=== PATIENT | male | born 1990 | race Two or more races ===

== ENCOUNTER 2020-08-28 08:54 | Outpatient (REF) | payer OTHER, SELFPAY | END 2020-08-28 08:55 | disposition home or self-care (01) | LOC: HO.LAB 08:54 | PROVIDERS: Visit Provider Internal Medicine | DX: Z20.828 Contact with and (suspected) exposure to other viral communicable diseases (principal) | CPT/HCPCS: C9803; U0003 ==

== ENCOUNTER 2022-08-24 11:21 | Emergency (ER) | payer OTHER, SELFPAY ==
--- NOTE | ~2022-08-24 | XR_ITS ---
EXAMINATION: XR CHEST CLINICAL INFORMATION: Cough and wheezing. COMPARISON: 01/30/2018 chest radiographs. TECHNIQUE: 2 views of the chest were obtained. FINDINGS: No significant abnormality is noted involving the heart, lungs, mediastinum, bony thorax or soft tissues. XR/XR chest 2V IMPRESSION: No acute cardiopulmonary process.
[2022-08-24 11:23] VITALS: BP 165/82; PULSE 90; RESP 18; TEMP 37.1; O2SAT 97; BMI 33.5
--- NOTE | 2022-08-24 11:33 | ED_ITS ---
HPI - General Adult General Chief complaint: General Medical Stated complaint: fever body aches Time Seen by Provider: 08/24/22 11:33 Source: patient Mode of arrival: ambulatory Limitations: no limitations History of Present Illness HPI narrative: 31 yo male presents to the ER for evaluation of flu like symptoms for the last 4 days. He states he has diffuse body aches and headache. He has a cough that is productive of white phlegm. He states the cough is worse in the morning and dissipates throughout the day. He feels weak and fatigued. He denies any sick contacts at home. He is unemployed. He is not vaccinated for influenza but is up-to-date on his COVID vaccinations. He reports intermittent fevers that come and go. He has been eating and drinking normally. No nausea, vomiting, diarrhea. No chest pain or shortness of breath. MD complaint: Flu-like symptoms Onset (ago): day(s) (4) Location: head, back, left, right and lower extremity Radiation: non-radiation Severity: moderate Quality: aching Pain Consistency: constant Relieving factors: none Exacerbating factors: medication Associated symptoms: cough, fever/chills, headaches, loss of appetite, malaise and weakness Treatments prior to arrival: none Related Data Previous Rx's Medication Instructions Recorded albuterol sulfate 90 mcg/actuation 1 inh inhalation QID PRN shortness 08/24/22 aerosol inhaler of breath or wheezing #6.7 grams benzonatate 100 mg capsule 100 mg PO TID PRN cough #30 caps 08/24/22 prednisone 20 mg tablet 40 mg PO DAILY #10 tabs 08/24/22 Allergies Allergy/AdvReac Type Severity Reaction Status Date / Time Penicillins [PCN] Allergy Unknown UNKNOWN Unverified 06/01/20 19:29 Review of Systems Review of Systems: Constitutional: + Fever, + Chills ENT/Mouth: No sore throat, No Rhinorrhea, No Swallowing Difficulty Eyes: No Eye Pain, No Swelling, No Redness Cardiovascular: No Chest Pain, No SOB Respiratory: + Cough, + Sputum, No Wheezing, No dyspnea Gastrointestinal: No Nausea, No Vomiting, No Diarrhea, No abdominal Pain Musculoskeletal: + joint pain, +Myalgias Skin: No Skin Lesions, No rash Neuro: + Weakness, No Numbness, No Dizziness, + Headache Heme/Lymph: No Lymphadenopathy PMFSH Social History Social History Advance Directives: No Advance Directives Information Provided: No Physical Exam ED Vital Signs: Vital Signs - 24 hr 08/24/22 11:23 Temperature 98.8 F Pulse Rate 90 Respiratory Rate 18 Blood Pressure 165/82 H Pulse Oximetry 97 Oxygen Delivery Method Room Air BMI result Body Mass Index 33.5 Appearance: Alert. Oriented X3. No acute distress. Eyes: Pupils equal, round and reactive to light. ENT: Pharynx normal. No tonsillar swelling or exudate. Uvula midline. Moist mucous membranes. Tympanic membranes normal bilaterally. Neck: Normal inspection. Neck supple. CVS: Normal heart rate and rhythm. Pulses normal. Respiratory: No respiratory distress. Breath sounds with faint and scattered end expiratory wheezes, no rhonchi. Skin: Skin warm and dry. Normal skin color. Normal skin turgor. No rashes. Extremities: No lower extremity edema. No calf tenderness Neuro: Oriented X 3. Grossly normal, nonfocal Course Course Course Narrative: 31-year-old otherwise healthy male presents to the ER for evaluation of flu-like symptoms for the last 4 days. Slightly hypertensive on arrival but AFib dry I will with normal oxygen saturations. He has faint end-expiratory wheezes scattered, he is a smoker. No respiratory distress. Will check chest x-ray and viral PCR. Reevaluation(s) Reevaluation #1: Chest x-ray is clear, no evidence of pneumonia. He tested positive for influenza A. Symptoms started 4 days ago. We discussed diagnosis and management. Stable for discharge home with supportive care. Critical Care Time Critical Care Time Critical Care Time: No Discharge Plan Discharge Clinical Impression: Influenza A Patient Disposition: Home, Self-Care Instructions: Influenza (ED) Additional Instructions: Your x-ray was normal, no evidence of pneumonia. You tested positive for influenza A. Treatment is supportive care. Take [id number] cold and flu medications as needed for your symptoms. Take the prescribed steroids for the slight wheezing in your lungs. Use the prescribed inhaler as needed for wheezing. Do your best to quit smoking. Rest and stay hydrated Follow-up with your doctor. If you develop new or worsening symptoms call 911 or come back to the ER for further evaluation. Rivera radiograf?a fue normal, sin evidencia de neumon?a. Usted sidney positivo por influenza A. El tratamiento es atenci?n de apoyo. [place] medicamentos de venta beata para el resfriado y la gripe seg?n sea necesario para nathan s?ntomas. [place] los esteroides prescritos para la leve sibilancia en los pulmones. Use el inhalador recetado seg?n sea necesario para las sibilancias. Emigdio todo lo posible para dejar de fumar. Descansa y mantente hidratado Seguimiento con rivera m?dico. Si desarrolla s?ntomas nuevos o que empeoran, llame al 911 o regrese a la huy de emergencias para shilo evaluaci?n adicional. Prescriptions: New albuterol sulfate 90 mcg/actuation HFA aerosol inhaler 1 inh inhalation QID PRN (Reason: shortness of breath or wheezing) Qty: 6.7 0RF prednisone 20 mg tablet 40 mg PO DAILY Qty: 10 0RF benzonatate 100 mg capsule 100 mg PO TID PRN (Reason: cough) Qty: 30 0RF Print Language: Romanian
[2022-08-24 12:27] LABS: Influenza A PCR POSITIVE (Negative); Influenza B PCR NEGATIVE (Negative); Resp Syncy Virus RNA Qual PCR NEGATIVE (Negative); SARS COV2 PCR INHOUSE NEGATIVE (Negative)
== END 2022-08-24 12:44 | disposition home or self-care (01) ==
PROVIDERS: Emergency Provider Emergency Medicine
DX: J11.1 Influenza due to unidentified influenza virus with other respiratory manifestations (principal); R50.9 Fever, unspecified; Z20.822 Contact with and (suspected) exposure to COVID-19
CPT/HCPCS: 0241U; 71046; 99282; 99283

== ENCOUNTER 2022-10-01 19:38 | Emergency (ER) | payer OTHER, SELFPAY ==
[2022-10-01 20:35] VITALS: BP 132/76; PULSE 84; RESP 20; TEMP 39.3; O2SAT 98; BMI 32.8
[2022-10-01 22:23] LABS: Influenza A PCR NEGATIVE (Negative); Influenza B PCR NEGATIVE (Negative); Resp Syncy Virus RNA Qual PCR NEGATIVE (Negative); SARS COV2 PCR INHOUSE NEGATIVE (Negative)
[2022-10-02 04:00] VITALS: BP 125/68; PULSE 68; RESP 18; TEMP 39.6; O2SAT 96
--- NOTE | 2022-10-02 04:37 | ED.GENADULT ---
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 patient states that he was feeling very weak, fatigued, lightheaded and dizzy. He states that his headache was a constant, throbbing sensation and was 10 of 10. Patient had an occasional cough, the was also complaining of chest pain which was worse with coughing. Related Data Previous Rx's Medication Instructions Recorded albuterol sulfate 90 mcg/actuation 1 inh inhalation QID PRN shortness 08/24/22 aerosol inhaler of breath or wheezing #6.7 grams benzonatate 100 mg capsule 100 mg PO TID PRN cough #30 caps 08/24/22 prednisone 20 mg tablet 40 mg PO DAILY #10 tabs 08/24/22 ondansetron 4 mg disintegrating 4 mg PO Q6-8H PRN nausea and 10/02/22 tablet vomiting #14 tabs Allergies Allergy/AdvReac Type Severity Reaction Status Date / Time Penicillins [PCN] Allergy Unknown UNKNOWN Verified 10/01/22 20:35 Review of Systems Review of Systems: Yes all other systems are reviewed and are negative [facility] Past Medical History [facility] Narrative: Social history: The patient does smoke cigarettes, occasionally drinks alcohol he denies drug use. Social History Social History Alcohol intake: current Alcohol intake frequency: holidays/special occasions only Smoked in Last 30 Days: Yes Advance Directives: No Advance Directives Information Provided: No Physical Exam ED Vital Signs: Vital Signs - 24 hr 10/01/22 20:35 10/02/22 04:00 10/02/22 06:29 Temperature 102.7 F H 103.2 F H 99.1 F Pulse Rate 84 68 75 Respiratory Rate 20 18 16 Blood Pressure 132/76 125/68 109/59 L Pulse Oximetry 98 96 94 Oxygen Delivery Method Room Air Room Air Room Air 10/02/22 07:02 Temperature 99 F Pulse Rate 71 Respiratory Rate 18 Blood Pressure 107/63 Pulse Oximetry 96 Oxygen Delivery Method Room Air BMI result Body Mass Index 32.8 Const General: cooperative and no acute distress Orientation/consciousness: oriented to person and oriented to place Limitations: no limitations HENMT Head: Yes normal to inspection, Yes normocephalic and Yes atraumatic Ears: external ears normal General nose exam: Normal external nose present Face and sinus: Yes normal facial exam Mouth: Normal oral and palatal mucosa present Throat: Yes posterior oropharynx normal Eyes General: appearance normal, both eyes and all related structures Pupils: Equal, round and reactive pupils present Neck Neck: Yes normal visual inspection, Yes no lymphadenopathy, Yes trachea midline and Yes supple Chest Chest palpation & inspection: normal inspection of the chest and normal palpation of entire chest wall Resp Effort & Inspection: normal respiratory effort and able to speak in complete sentences Auscultation: clear to auscultation bilaterally Cardio Rate: regular rate Rhythm: regular rhythm Heart sounds: S1 normal heart sound present, S2 normal heart sound present and no murmurs GI Inspection: Yes normal to inspection Palpation (GI): Soft to palpation, nontender and no guarding Auscultation: normal bowel sounds General: Yes no CVA tenderness Back/Spine/Pelvis Back: no CVA tenderness Skin General skin exam: no rashes or lesions noted Neuro General: oriented to person and oriented to place Cranial nerves: Yes CN's II-XII intact bilaterally and Yes Equal, round and reactive pupils present Cognition (Neuro): normal cognition Motor exam (neuro): 5/5 motor strength present throughout Extrem General: Yes normal to inspection Psych Appearance: grossly normal Speech and movement: Normal speech and movement present Affect: normal affect Attitude: cooperative Thought process: Normal thought process present Thought content: Normal thought content present Medications Administered Discontinued Medications Generic Name Dose Route Start Last Admin Trade Name Freq PRN Reason Stop Dose Admin Sodium Chloride 1,000 mls @ 999 mls/hr 10/02/22 04:08 10/02/22 07:18 Ns IV 10/02/22 05:08 Infused .Q1H1M STA Infusion Ketorolac Tromethamine 15 mg 10/02/22 04:08 10/02/22 04:56 Ketorolac Tromethamine 15 Mg/Ml Vial IVPUSH 10/02/22 04:09 15 mg ONCE STA Administration Ondansetron HCl 4 mg 10/02/22 04:08 10/02/22 04:56 Ondansetron Hcl 4 Mg/2 Ml Vial IVPUSH 10/02/22 04:09 4 mg ONCE ONE Administration Medical Decision Making Medical Decision Making [facility] Narrative: 32-year-old male who presents emergency department for evaluation of viral-like illness x5 days with symptoms including fever, headaches, nausea, vomiting, diarrhea, myalgias and arthralgias. Vital signs did reveal a fever of 102.7 otherwise were unremarkable. Patient's examination was also unremarkable. Did order laboratory evaluation to include CBC, BMP, lipase, COVID-19, RSV and influenza. Chest x-ray was also ordered. Patient was treated with normal saline IV x1 L, Toradol 15 mg IV for his headache and pain and Zofran 4 mg IV for nausea and vomiting 0822: My independent interpretation patient's laboratory evaluation is as follows: Low sodium 133, low CO2 20, elevated AST 43. COVID-19, influenza and RSV were negative. Chest x-ray on my independent interpretation revealed no acute disease. patient is feeling better after the above treatment. patient was prescribe Zosyn 4 mg ODT as needed for nausea and vomiting, is advised also take Tylenol and ibuprofen for fever and pain. He was given printed and verbal instructions and discharged home. Differential Diagnosis Differential diagnosis includes was not limited to pneumonia, bronchitis, influenza, RSV, COVID-19, viral syndrome, dehydration, electrolyte abnormalities Lab Data [facility] Lab Attestation statement: I reviewed the patient's lab results. please see the MDM from my discussion of the patient's laboratory 10/02/22 04:50 10/02/22 04:50 Labs: Lab Results 10/01/22 10/02/22 10/02/22 Range/Units 21:40 04:49 04:50 WBC 6.3 (4.8-10.8) X10*3/uL RBC 5.07 (4.60-5.80) X10*6/uL Hgb 14.3 (14.0-18.0) g/dl Hct 40.4 L (42.0-52.0) % MCV 79.7 L (80.0-98.0) fL MCH 28.2 (27.0-33.0) pg MCHC 35.4 (31.0-36.0) g/dl RDW 13.2 (11.0-16.0) % Plt Count 200 (160-400) X10*3/uL MPV 9.7 (9.4-12.4) fL Immature Gran % (Auto) 0.2 (0.0-0.4) % Neut % (Auto) 68.1 (45-73) % Lymph % (Auto) 23.3 (20-40) % Clay % (Auto) 8.1 (2-11) % Eos % (Auto) 0.0 (0-4) % Baso % (Auto) 0.3 (0-2) % Lymph # (Auto) 1.5 (1.2-4.9) X10*3/uL Clay # (Auto) 0.5 (0.1-1.2) X10*3/uL Eos # (Auto) 0.0 (0.0-0.4) X10*3/uL Baso # (Auto) 0.0 (0.0-0.2) X10*3/uL Abs Immat Gran (auto) 0.01 (0.00-0.03) X10*3/uL Absolute Neuts (auto) 4.3 (2.0-8.3) x10*3/uL Absolute Nucleated RBC 0.000 (0.0-0.012) X10*3/uL Nucleated RBC % (auto) 0.0 (0.0-0.2) /100WBC Sodium (135-145) mmol/L Potassium (3.3-5.1) mmol/L Chloride (96-108) mmol/L Carbon Dioxide (22-29) mmol/L Anion Gap (12-20) BUN (9-16) mg/dL Creatinine (0.5-1.4) mg/dL Estim Creat Clear Calc Estimated GFR Random Glucose (60-115) mg/dL Lactic Acid 0.8 (0.5-2.0) mmol/L Calcium (8.4-10.2) mg/dL Total Bilirubin (0.0-1.0) mg/dL AST (5-37) U/L ALT (0-40) U/L Alkaline Phosphatase (39-117) U/L Total Protein (6.5-8.0) g/dL Albumin (3.5-5.0) g/dL Lipase (8-78) U/L Influenza Type A (PCR) NEGATIVE (Negative) Influenza Type B (PCR) NEGATIVE (Negative) RSV RNA Qual (PCR) NEGATIVE (Negative) SARS-CoV-2 RNA (RT-PCR) NEGATIVE (Negative) 10/02/22 Range/Units 04:50 WBC (4.8-10.8) X10*3/uL RBC (4.60-5.80) X10*6/uL Hgb (14.0-18.0) g/dl Hct (42.0-52.0) % MCV (80.0-98.0) fL MCH (27.0-33.0) pg MCHC (31.0-36.0) g/dl RDW (11.0-16.0) % Plt Count (160-400) X10*3/uL MPV (9.4-12.4) fL Immature Gran % (Auto) (0.0-0.4) % Neut % (Auto) (45-73) % Lymph % (Auto) (20-40) % Clay % (Auto) (2-11) % Eos % (Auto) (0-4) % Baso % (Auto) (0-2) % Lymph # (Auto) (1.2-4.9) X10*3/uL Clay # (Auto) (0.1-1.2) X10*3/uL Eos # (Auto) (0.0-0.4) X10*3/uL Baso # (Auto) (0.0-0.2) X10*3/uL Abs Immat Gran (auto) (0.00-0.03) X10*3/uL Absolute Neuts (auto) (2.0-8.3) x10*3/uL Absolute Nucleated RBC (0.0-0.012) X10*3/uL Nucleated RBC % (auto) (0.0-0.2) /100WBC Sodium 133 L (135-145) mmol/L Potassium 3.8 (3.3-5.1) mmol/L Chloride 101 (96-108) mmol/L Carbon Dioxide 20 L (22-29) mmol/L Anion Gap 16 (12-20) BUN 15 (9-16) mg/dL Creatinine 0.93 (0.5-1.4) mg/dL Estim Creat Clear Calc 141.6 Estimated GFR > 60 Random Glucose 98 (60-115) mg/dL Lactic Acid (0.5-2.0) mmol/L Calcium 8.8 (8.4-10.2) mg/dL Total Bilirubin 0.7 (0.0-1.0) mg/dL AST 31 (5-37) U/L ALT 43 H (0-40) U/L Alkaline Phosphatase 51 (39-117) U/L Total Protein 7.1 (6.5-8.0) g/dL Albumin 4.1 (3.5-5.0) g/dL Lipase 19 (8-78) U/L Influenza Type A (PCR) (Negative) Influenza Type B (PCR) (Negative) RSV RNA Qual (PCR) (Negative) SARS-CoV-2 RNA (RT-PCR) (Negative) Independent Interpretation I performed an independent interpretation of an: Plain X-Ray ( chest x-ray) Interpretation: my independent interpretation patient's chest x-ray is no acute disease Radiology Impression Discussion of test interpretation with radiology: I have reviewed the radiologist's reading. Radiologist Impression: XR chest 2V IMPRESSION: No acute cardiopulmonary process. Dictated By: Nikhil Sharp MD Signed By:<Electronically signed by Nikhil Sharp MD in OV> Discharge Plan Discharge Clinical Impression: Viral syndrome, Acute dehydration Vomiting Qualifiers: Nausea presence: with nausea Diarrhea Qualifiers: Diarrhea type: unspecified type Qualified Code(s): R19.7 - Diarrhea, unspecified Patient Disposition: Home, Self-Care Instructions: Acute Nausea and Vomiting (ED), Viral Syndrome (ED) Additional Instructions: Your blood work was unremarkable. Your chest x-ray was normal with no evidence of pneumonia. Your COVID-19, influenza and RSV tests were negative. Take Zofran ODT 4 mg pills, 1 pill dissolved in your mouth every 8 hours as needed for nausea and vomiting. Take ibuprofen 200 mg pills, 3 pills every 6 hours as needed for pain. Take Tylenol (acetaminophen) 500 mg pills, 2 pills every 4 to 6 hours as needed for pain. Increase your fluid intake to prevent dehydration For the next 24 hours, stay on a ANGELINA diet (bananas, rice, applesauce, tea and toast). Follow-up with your doctor in 2 days. Please return to the emergency department if your symptoms get worse or if you develop any symptoms that are concerning to you. Prescriptions: New ondansetron 4 mg tablet,disintegrating 4 mg PO Q6-8H PRN (Reason: nausea and vomiting) Qty: 14 0RF No Action albuterol sulfate 90 mcg/actuation HFA aerosol inhaler 1 inh inhalation QID PRN (Reason: shortness of breath or wheezing) Qty: 6.7 0RF prednisone 20 mg tablet 40 mg PO DAILY Qty: 10 0RF benzonatate 100 mg capsule 100 mg PO TID PRN (Reason: cough) Qty: 30 0RF
[2022-10-02] MEDS: 0.9 % Sodium Chloride 1,000 ML 999 ML IV (04:55)
[2022-10-02] MEDS: ondansetron HCL 4 MG/2 ML VIAL IVPUSH (04:56)
[2022-10-02] MEDS: Ketorolac Tromethamine 15 MG/ML VIAL IVPUSH (04:56)
[2022-10-02 04:57] LABS: Basophils Percent Auto 0.3 % (0-2); Hematocrit 40.4 % (42.0-52.0); Hemoglobin 14.3 g/dl (14.0-18.0); Imm Gran Abs Auto 0.01 X10*3/uL (0.00-0.03); Imm Gran Pct Auto 0.2 % (0.0-0.4); Lymphocytes Absolute Auto 1.5 X10*3/uL (1.2-4.9); Lymphocytes Percent Auto 23.3 % (20-40); MANUAL DIFF FLAG NO; Mean Corpuscular HGB Conc 35.4 g/dl (31.0-36.0); Mean Corpuscular Hemoglobin 28.2 pg (27.0-33.0); Mean Corpuscular Volume 79.7 fL (80.0-98.0); Mean Platelet Volume 9.7 fL (9.4-12.4); Monocytes Absolute Auto 0.5 X10*3/uL (0.1-1.2); Monocytes Percent Auto 8.1 % (2-11); Neutrophils Absolute Auto 4.3 x10*3/uL (2.0-8.3); Neutrophils Percent Auto 68.1 % (45-73); Platelet Count 200 X10*3/uL (160-400); Red Blood Count 5.07 X10*6/uL (4.60-5.80); Red Cell Distribution Width 13.2 % (11.0-16.0); White Blood Count 6.3 X10*3/uL (4.8-10.8)
[2022-10-02 05:06] LABS: Lactic Acid 0.8 mmol/L (0.5-2.0)
[2022-10-02 05:15] LABS: Alanine Aminotransferase 43 U/L (0-40); Albumin Level 4.1 g/dL (3.5-5.0); Alkaline Phosphatase 51 U/L (39-117); Anion Gap 16 (12-20); Aspartate Amino Transferase 31 U/L (5-37); Bilirubin Total 0.7 mg/dL (0.0-1.0); Blood Urea Nitrogen 15 mg/dL (9-16); Calcium 8.8 mg/dL (8.4-10.2); Carbon Dioxide 20 mmol/L (22-29); Chloride 101 mmol/L (96-108); Creatinine Clr Calc Pharmacy 141.6; Estimated Glomerular Filt Rate > 60; Glucose Random 98 mg/dL (60-115); Lipase 19 U/L (8-78); Potassium 3.8 mmol/L (3.3-5.1); Sodium 133 mmol/L (135-145); Total Protein 7.1 g/dL (6.5-8.0)
[2022-10-02 06:29] VITALS: BP 109/59; PULSE 75; RESP 16; TEMP 37.3; O2SAT 94
[2022-10-02 07:02] VITALS: BP 107/63; PULSE 71; RESP 18; TEMP 37.2; O2SAT 96
--- NOTE | 2022-10-02 07:18 | PC.NURSE ---
pt a/o x 4 no sob/hayley noted speaks in full sentences. lungs - rain upper (cta), rain lower (diminished). heart sounds - regular. abd soft and non-tender, bs + x 4 quads. no edema noted. 0/10 pain. no diarrhea since arrival to er.
== END 2022-10-02 08:40 | disposition home or self-care (01) ==
PROVIDERS: Emergency Provider Emergency Medicine Emergency Medical Services
DX: B34.9 Viral infection, unspecified (principal); E86.0 Dehydration; R50.9 Fever, unspecified; R19.7 Diarrhea, unspecified; R11.2 Nausea with vomiting, unspecified; Z20.822 Contact with and (suspected) exposure to COVID-19; Z20.828 Contact with and (suspected) exposure to other viral communicable diseases; Z79.899 Other long term (current) drug therapy
CPT/HCPCS: 0241U; 36415; 80053; 83605; 83690; 85025; 87040; 96361; 96374; 96375; 99284; J1885; J2405

== ENCOUNTER 2022-10-03 19:38 | Emergency (ER) | payer OTHER, SELFPAY ==
[2022-10-03 19:51] VITALS: BP 116/71; PULSE 87; RESP 16; TEMP 38.6; O2SAT 97; BMI 18.9
[2022-10-03] MEDS: Acetaminophen 325 MG TABLET 650 MG PO (20:03)
--- NOTE | 2022-10-03 20:11 | ED_ITS ---
HPI - URI/Sore Throat General Chief Complaint: Fever Stated Complaint: Fever/ Bodyaches Time Seen by Provider: 10/03/22 20:07 Source: patient Mode of arrival: ambulatory Limitations: language barrier (Central [place]-speaking) History of Present Illness HPI Narrative: 32-year-old male who is [place]-speaking presenting to the ER with complaints of 1 week of a fever, sore throat and a nonproductive cough. Reports that he has young kids at home and they has similar symptoms recently. He reports he has been taking ibuprofen 400 mg at home every 4 hours although the fever does not break. He denies any other sick contacts, any dizziness, headaches, neck pain/stiffness, trouble swallowing or breathing, chest pain or shortness of breath, dyspnea on exertion, orthopnea palpitations paresthesias, nausea/vomiting/diarrhea constipation, abdominal pain, back pain, flank pain, dysuria, hematuria, rashes, recent travel or any other symptoms complaints or concerns at this time. MD elicited complaint: fever, cough and sore throat Onset (ago): week(s) (1) Consistency: constant Severity: mild Exacerbating factors: swallowing Relieving factors: nothing Context: sick contacts Associated symptoms: fever, chills, myalgias, sore throat and cough Treatments prior to arrival: ibuprofen Related Data Previous Rx's Medication Instructions Recorded albuterol sulfate 90 mcg/actuation 1 inh inhalation QID PRN shortness 08/24/22 aerosol inhaler of breath or wheezing #6.7 grams benzonatate 100 mg capsule 100 mg PO TID PRN cough #30 caps 08/24/22 prednisone 20 mg tablet 40 mg PO DAILY #10 tabs 08/24/22 ondansetron 4 mg disintegrating 4 mg PO Q6-8H PRN nausea and 10/02/22 tablet vomiting #14 tabs acetaminophen 500 mg tablet 1,000 mg PO QID PRN fever or pain 10/03/22 (Tylenol Extra Strength) #14 tabs clindamycin HCl 300 mg capsule 300 mg PO TID Pharyngitis 10 days 10/03/22 #30 caps ibuprofen 800 mg tablet 800 mg PO Q8H PRN pain #14 tabs 10/03/22 Allergies Allergy/AdvReac Type Severity Reaction Status Date / Time Penicillins [PCN] Allergy Unknown UNKNOWN Verified 10/01/22 20:35 Review of Systems Review of Systems: Constitutional : + fever/chills/fatigue/malaise, No Weight loss, No Night Sweats ENT/Mouth : No Hearing loss, No Ear Pain, No Nasal Congestion, No Sinus Pain, No Hoarseness, + sore throat, No Rhinorrhea, No Swallowing Difficulty Eyes: No Eye Pain, No Swelling, No Redness, No Foreign Body, No Discharge, No Vision Changes Cardiovascular : No Chest Pain, No SOB, No Dyspnea on Exertion, No Orthopnea, No Edema, No Palpitations Respiratory : + Cough, No Sputum, No Wheezing, No Smoke Exposure, No Dyspnea Gastrointestinal : No Nausea, No Vomiting, No Diarrhea, No Constipation, No abdominal Pain, No Hematochezia, No Melena Genitourinary : no irregular bleeding, No Dysuria, No Urinary Frequency, No Hematuria, No Urinary Incontinence, No Urgency, No Flank Pain, No Urinary Flow Changes, No Hesitancy Musculoskeletal : No joint pain, + Myalgias, No Joint Swelling Skin : No Skin Lesions, No rash Neuro : No Weakness, No Numbness, No Paresthesias, No Loss of Consciousness, No Dizziness, No Headache Psych : No Anxiety/Panic, No Depression, No SI/HI/AH/VH, No Social Issues, Heme/Lymph: No Bruising, No Bleeding,No Lymphadenopathy Endocrine : No Polyuria, No Polydipsia, No Temperature Intolerance Yes all other systems are reviewed and are negative [facility] Past Medical History Attestation statement: The following information was validated with the patient. Source: old records reviewed and nursing notes reviewed Social History Social History Alcohol intake: current Alcohol intake frequency: holidays/special occasions only Advance Directives: No Advance Directives Information Provided: No Physical Exam Vital Signs: Vital Signs: Last Vital Signs Temp 101.4 F H 10/03/22 19:51 Pulse 87 10/03/22 19:51 Resp 16 10/03/22 19:51 BP 116/71 10/03/22 19:51 Pulse Ox 97 10/03/22 19:51 O2 Del Method 10/03/22 19:51 BMI result Body Mass Index 18.9 Vital signs reviewed. Blood pressure normal. Pulse normal. Respiration normal. Oxygen normal. Temperature 101.4. Appearance: Alert. Oriented X3. No acute distress. Head: Normal external exam. Normocephalic. Atraumatic. Eyes: PERRLA. EOMI. Conjunctiva and sclera normal. Eyelids normal. ENT: EAC normal. TM's Normal. Posterior pharynx erythematous with scattered exudate noted on bilateral tonsils. Uvula midline. Moist mucous membranes. No lesions/ulcerations or masses noted on the tongue. Normal voice. No trismus noted. No drooling noted. No muffled voice noted. Neck: Normal inspection. Neck supple. FROM. No adenopathy. Thyroid Normal. No meningeal signs. CVS: Normal heart rate and rhythm. Heart sound normal. Pulses normal throughout. No murmurs/rales/gallops. Respiratory: No respiratory distress. Painless inspiration. Breath sounds normal. No wheezes/rales/rhonchi noted. Chest nontender. No accessory muscle usage noted or decreased air movement noted. Abdomen: Soft and nontender. Back: Full range of motion noted. Nontender. Skin: Skin warm and dry. Normal skin color. Normal skin turgor. No rashes/lesions/lacerations noted. Extremities: Extremities exhibit normal range of motion and nontender. Neuro: Oriented X 3. No motor deficit. No sensory deficit. Reflexes normal. Normal steady gait. No focal neuro deficits noted. CN's II-XII intact bilaterally? Vascular: + radial pulses. Normal cap refill. No cyanosis noted to upper extremity nails Course Course Course Narrative: On exam patient appears to have bacterial pharyngitis. Not consistent with peritonsillar abscess/pharyngeal abscess/dental abscess. Not consistent with Kendrick's angina. Patient tolerating secretions well. Not consistent with pneumonia. Could possibly related to COVID her flu or RSV. Therefore at this time will test for COVID/RSV/flu. Will also assess for bacterial pharyngitis. Patient like to go home therefore will call him with positive results for COVID/RSV/flu. Will treat him for bacterial pharyngitis and instructions return if any new or worsening symptoms follow up with primary care provider. Patient understands agrees with this plan. Medications Administered Discontinued Medications Generic Name Dose Route Start Last Admin Trade Name Freq PRN Reason Stop Dose Admin Acetaminophen 650 mg 10/03/22 19:59 10/03/22 20:03 Acetaminophen 325 Mg Tablet PO 10/03/22 20:00 650 mg ONCE ONE Administration Clindamycin HCl 300 mg 10/03/22 20:12 10/03/22 20:18 Clindamycin Hcl 300 Mg Capsule PO 10/03/22 20:13 300 mg ONCE ONE Administration Dexamethasone 10 mg 10/03/22 20:12 10/03/22 20:18 Dexamethasone 2 Mg Tablet PO 10/03/22 20:13 10 mg ONCE ONE Administration Medical Decision Making Lab Data MDM Lab Attestation statement: I reviewed the patient's lab results. Labs: Lab Results 10/03/22 Range/Units 20:07 S. pyogenes GrpA [place] Negative (Negative) Discharge Plan Discharge Clinical Impression: Acute bacterial pharyngitis, Fever Patient Disposition: Home, Self-Care Instructions: Pharyngitis (ED), Fever in Adults (ED) Prescriptions: New clindamycin HCl 300 mg capsule 300 mg PO TID 10 Days Qty: 30 0RF ibuprofen 800 mg tablet 800 mg PO Q8H PRN (Reason: pain) Qty: 14 0RF acetaminophen [Tylenol Extra Strength] 500 mg tablet 1,000 mg PO QID PRN (Reason: fever or pain) Qty: 14 0RF No Action ondansetron 4 mg tablet,disintegrating 4 mg PO Q6-8H PRN (Reason: nausea and vomiting) Qty: 14 0RF albuterol sulfate 90 mcg/actuation HFA aerosol inhaler 1 inh inhalation QID PRN (Reason: shortness of breath or wheezing) Qty: 6.7 0RF prednisone 20 mg tablet 40 mg PO DAILY Qty: 10 0RF benzonatate 100 mg capsule 100 mg PO TID PRN (Reason: cough) Qty: 30 0RF Referrals: Physician,None [Primary Care Provider] - (PCP as needed) Stand Alone Forms: Work/School Release Print Language: [place]
[2022-10-03] MEDS: dexAMETHasone 2 MG TABLET 10 MG PO (20:18)
[2022-10-03] MEDS: Clindamycin HCL 300 MG CAPSULE PO (20:18)
[2022-10-03 20:21] LABS: IDNOW Serial# 6674DD1D; Strep A Nucleic Acid Negative (Negative)
[2022-10-03 20:51] LABS: Influenza A PCR NEGATIVE (Negative); Influenza B PCR NEGATIVE (Negative); Resp Syncy Virus RNA Qual PCR NEGATIVE (Negative); SARS COV2 PCR INHOUSE NEGATIVE (Negative)
--- NOTE | 2022-10-03 21:30 | PC.NURSE ---
Patient called with results of swabs
== END 2022-10-03 20:25 | disposition home or self-care (01) ==
PROVIDERS: Emergency Provider Emergency Medicine
DX: J02.9 Acute pharyngitis, unspecified (principal); R50.9 Fever, unspecified; M79.10 Myalgia, unspecified site; R05.9 Cough, unspecified; Z20.822 Contact with and (suspected) exposure to COVID-19; Z20.828 Contact with and (suspected) exposure to other viral communicable diseases; Z79.899 Other long term (current) drug therapy
CPT/HCPCS: 0241U; 87651; 99283; J8540

== ENCOUNTER 2023-09-07 10:41 | Emergency (ER) | payer OTHER, SELFPAY ==
--- NOTE | ~2023-09-07 | CT_ITS ---
EXAMINATION: CT PELVIS WITH CONTRAST CLINICAL INFORMATION: Peroneal pain. Question abscess. COMPARISON: September 26, 2018. TECHNIQUE: Helical scanning was performed with submillimeter collimation through the pelvis with the use of oral contrast and during bolus intravenous injection of 85 mL of Omnipaque 350 intravenous contrast. Sagittal and coronal multiplanar 2-D reconstructions were obtained. This CT examination was performed using dose optimization techniques as appropriate, variously including the following: *Automated exposure control *Adjustment of mA and/or kV according to patient size (this includes techniques or standardized protocols for targeted exams where dose is matched to indication/reason for exam; i.e. extremities or head) *Use of iterative reconstruction technique DLP: 782 mGy-cm. FINDINGS: PELVIS: No suspicious pelvic mass is appreciated. The appendix appears unremarkable. No evidence of diverticulosis/diverticulitis. In the left perianal region there is a 4.2 x 1.4 x 2.4 cm complex collection with Hounsfield unit measurements within the 20s, likely representing complex fluid collection or possible abscess. There is some mild adjacent fat streaking present. No gas within the collection is identified. There is question of some anterior distention of fluid in the region of the posterior scrotum. No significant adjacent inflammatory changes seen and no gas within the scrotum or surrounding region is seen to suggest Jaxson's gangrene. There is a similar appearance on prior CT of September 26, 2018, but not as prominent. Clinical correlation is suggested. OSSEOUS STRUCTURES: Bony structures unremarkable without abnormal obstructive lesion. CT/CT pelvis w IV con IMPRESSION: Left perianal complex collection with a small amount of fat stranding adjacent to it, which may represent a perianal abscess. There is a question of some fluid extension anteriorly to the posterior scrotum as described. Clinical correlation with physical exam suggested.
[2023-09-07 10:51] VITALS: BP 147/86; PULSE 91; RESP 16; TEMP 37.3; O2SAT 97; BMI 33.5
[2023-09-07 12:04] LABS: IDNOW Serial# 08D9AD1C; Strep A Nucleic Acid Negative (Negative)
[2023-09-07 12:06] LABS: COVID-19 Test Negative (Negative); IDNOW Serial# 9DB6401D
[2023-09-07] MEDS: Acetaminophen 325 MG TABLET 975 MG PO (12:10)
[2023-09-07] MEDS: Ibuprofen 400 MG TABLET PO (12:10)
[2023-09-07 12:41] LABS: IDNOW Serial# 9DB6401D; Influenza A Negative (Negative); Influenza B2 Negative (Negative)
--- NOTE | 2023-09-07 13:35 | ED.HA ---
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 Related Data Previous Rx's Medication Instructions Recorded albuterol sulfate 90 mcg/actuation 1 inh inhalation QID PRN shortness 08/24/22 aerosol inhaler of breath or wheezing #6.7 grams benzonatate 100 mg capsule 100 mg PO TID PRN cough #30 caps 08/24/22 prednisone 20 mg tablet 40 mg (2 x 20 mg) PO DAILY #10 tabs 08/24/22 ondansetron 4 mg disintegrating 4 mg PO Q6-8H PRN nausea and 10/02/22 tablet vomiting #14 tabs acetaminophen 500 mg tablet 1,000 mg (2 x 500 mg) PO QID PRN 10/03/22 (Tylenol Extra Strength) fever or pain #14 tabs clindamycin HCl 300 mg capsule 300 mg PO TID Pharyngitis 10 days 10/03/22 #30 caps ibuprofen 800 mg tablet 800 mg PO Q8H PRN pain #14 tabs 10/03/22 doxycycline monohydrate 100 mg 100 mg PO BID 7 days #14 caps 09/07/23 capsule Allergies Allergy/AdvReac Type Severity Reaction Status Date / Time Penicillins [PCN] Allergy Unknown UNKNOWN Verified 10/01/22 20:35 Review of Systems Review of Systems: Pertinent positives and negatives as stated in HPI [facility] Past Medical History Source: nursing notes reviewed Social History Social History Alcohol intake: current Alcohol intake frequency: holidays/special occasions only Smoked in Last 30 Days: No Use of substances other than those prescribed or required for medical reasons: No Advance Directives: No Advance Directives Information Provided: Yes Physical Exam Vital Signs: Vital Signs: Last Vital Signs Temp 99.2 F 09/07/23 10:51 Pulse 69 09/07/23 14:06 Resp 18 09/07/23 14:06 BP 120/66 09/07/23 14:06 Pulse Ox 96 09/07/23 14:06 O2 Del Method Room Air 09/07/23 14:06 BMI result Body Mass Index 33.5 VITAL SIGNS: Reviewed. GENERAL: Well developed, well nourished, in no acute distress. HEAD: Normocephalic/atraumatic EYES: PERRLA, EOMI LUNGS: Normal breath sounds. No adventitious sounds or accessory muscle use. SpO2<96> CARDIOVASCULAR: Regular rate and rhythm without noted murmurs ABDOMEN: Soft, non-tender, non-distended with bowel sounds. 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 EXTREMITIES: No cyanosis, clubbing or edema. SKIN: Inspection of the skin reveals no rashes NEUROLOGIC: Alert and oriented x 4. Strength and sensation to light touch were grossly intact x 4. Medications Administered Discontinued Medications Generic Name Dose Route Start Last Admin Trade Name Freq PRN Reason Stop Dose Admin Acetaminophen 975 mg 09/07/23 10:49 09/07/23 12:10 Acetaminophen 325 Mg Tablet PO 09/07/23 10:50 975 mg ONCE ONE Administration Ibuprofen 400 mg 09/07/23 10:49 09/07/23 12:10 Ibuprofen 400 Mg Tablet PO 09/07/23 10:50 400 mg ONCE ONE Administration Iohexol 100 ml 09/07/23 15:32 09/07/23 15:33 Iohexol 350 Mg/Ml 100 Ml Infus..Btl IV 09/07/23 15:33 85 ml ONCE ONE Administration Medical Decision Making Medical Decision Making MDM Narrative: 33-year-old male with history and clinical presentation that appears to be hidradenitis. Will receive antibiotics, do lab work, CT scan of pelvis but suspect that patient will need to follow-up with general surgery and be directed to [facility] and stay on a course of antibiotics. Reviewed all investigations and hematologic indices are significant for leukocytosis but no left shift and no anemia or thrombocytopenia. Chemistry indices do not demonstrate an ANJEL and there is no electrolyte or transaminases derangements. There is a noted isolated bump in total bilirubin of unclear significance as patient does not have abdominal pain. Viral testing negative for COVID-19/influenza. Patient's headache improved after receiving combination Tylenol and ibuprofen. I discussed the case briefly with Dr. Pruitt, General surgery, who agrees with referral and will see the patient in the outpatient setting. Signed out to Dr. Delaney - f/u CT scan - discharge papers completed. Differential Diagnosis Differential Diagnoses: The differential diagnosis associated with the presentation includes Please see the discussion above Admission/Observation Consideration of admission/observation: Escalation of care including admission/observation considered Please see the discussion above Consult Healthcare Provider Management of the patient was discussed with: Siebel Administrator Please see the discussion above Lab Data MDM Lab Attestation statement: I reviewed the patient's lab results. Please see the discussion above 09/07/23 14:58 09/07/23 14:58 Labs: Lab Results 09/07/23 09/07/23 Range/Units 11:38 14:58 WBC 12.5 H (4.8-10.8) X10*3/uL RBC 5.70 (4.60-5.80) X10*6/uL Hgb 15.8 (14.0-18.0) g/dl Hct 45.6 (42.0-52.0) % MCV 80.0 (80.0-98.0) fL MCH 27.7 (27.0-33.0) pg MCHC 34.6 (31.0-36.0) g/dl RDW 12.7 (11.0-16.0) % Plt Count 308 D (160-400) X10*3/uL MPV 9.2 L (9.4-12.4) fL Immature Gran % (Auto) 0.3 (0.0-0.4) % Neut % (Auto) 72.9 (45-73) % Lymph % (Auto) 20.3 (20-40) % [place] % (Auto) 5.6 (2-11) % Eos % (Auto) 0.7 (0-4) % Baso % (Auto) 0.2 (0-2) % Lymph # (Auto) 2.5 (1.2-4.9) X10*3/uL [place] # (Auto) 0.7 (0.1-1.2) X10*3/uL Eos # (Auto) 0.1 (0.0-0.4) X10*3/uL Baso # (Auto) 0.0 (0.0-0.2) X10*3/uL Abs Immat Gran (auto) 0.04 H (0.00-0.03) X10*3/uL Absolute Neuts (auto) 9.1 H (2.0-8.3) x10*3/uL Absolute Nucleated RBC 0.000 (0.0-0.012) X10*3/uL Nucleated RBC % (auto) 0.0 (0.0-0.2) /100WBC Sodium 139 (135-145) mmol/L Potassium 3.8 (3.3-5.1) mmol/L Chloride 105 (96-108) mmol/L Carbon Dioxide 25 (22-29) mmol/L Anion Gap 13 (12-20) BUN 14 (9-16) mg/dL Creatinine 0.95 (0.5-1.4) mg/dL Estim Creat Clear Calc 138.7 Estimated GFR > 60 Random Glucose 84 (60-115) mg/dL Calcium 10.1 D (8.4-10.2) mg/dL Total Bilirubin 1.1 H (0.0-1.0) mg/dL AST 17 (5-37) U/L ALT 28 (0-40) U/L Alkaline Phosphatase 71 (39-117) U/L Total Protein 8.4 H (6.5-8.0) g/dL Albumin 4.6 (3.5-5.0) g/dL COVID-19 ([facility]AR) Negative (Negative) COVID-19 Clin Com See Note Influenza Type A ([place]) Negative (Negative) Influenza Type B ([place]) Negative (Negative) Influenza A & B Note See Note S. pyogenes GrpA [place] Negative (Negative) External Record Review External record reviewed: Outpatient record, Prior outpatient labs and Prior outpatient radiology Critical Care Time Critical Care Time Critical Care Time: Yes Total Critical Care Time: 30 Attestation: I personally attest to this time spent taking care of the patient. Discharge Plan Discharge Clinical Impression: Hidradenitis Patient Disposition: Still a Patient Instructions: Hidradenitis Suppurativa (ED) Additional Instructions: 1. Complete the entire course of antibiotics as prescribed. 2. A referral has been given to you for General surgery, please call the office on Friday. 3. Follow-up with your primary care doctor. Return to the ER for any worsening symptoms. Prescriptions: New doxycycline monohydrate 100 mg capsule 100 mg PO BID 7 Days Qty: 14 0RF No Action ondansetron 4 mg tablet,disintegrating 4 mg PO Q6-8H PRN (Reason: nausea and vomiting) Qty: 14 0RF albuterol sulfate 90 mcg/actuation HFA aerosol inhaler 1 inh inhalation QID PRN (Reason: shortness of breath or wheezing) Qty: 6.7 0RF prednisone 20 mg tablet 40 mg PO DAILY Qty: 10 0RF benzonatate 100 mg capsule 100 mg PO TID PRN (Reason: cough) Qty: 30 0RF clindamycin HCl 300 mg capsule 300 mg PO TID 10 Days Qty: 30 0RF ibuprofen 800 mg tablet 800 mg PO Q8H PRN (Reason: pain) Qty: 14 0RF acetaminophen [Tylenol Extra Strength] 500 mg tablet 1,000 mg PO QID PRN (Reason: fever or pain) Qty: 14 0RF Referrals: Chava Pruitt MD [Physician] -
[2023-09-07 14:06] VITALS: BP 120/66; PULSE 69; RESP 18; O2SAT 96
[2023-09-07 15:02] LABS: MANUAL DIFF FLAG NO
[2023-09-07 15:03] LABS: Basophils Percent Auto 0.2 % (0-2); Eosinophils Absolute Auto 0.1 X10*3/uL (0.0-0.4); Eosinophils Percent Auto 0.7 % (0-4); Hematocrit 45.6 % (42.0-52.0); Hemoglobin 15.8 g/dl (14.0-18.0); Imm Gran Abs Auto 0.04 X10*3/uL (0.00-0.03); Imm Gran Pct Auto 0.3 % (0.0-0.4); Lymphocytes Absolute Auto 2.5 X10*3/uL (1.2-4.9); Lymphocytes Percent Auto 20.3 % (20-40); Mean Corpuscular HGB Conc 34.6 g/dl (31.0-36.0); Mean Corpuscular Hemoglobin 27.7 pg (27.0-33.0); Mean Platelet Volume 9.2 fL (9.4-12.4); Monocytes Absolute Auto 0.7 X10*3/uL (0.1-1.2); Monocytes Percent Auto 5.6 % (2-11); Neutrophils Absolute Auto 9.1 x10*3/uL (2.0-8.3); Neutrophils Percent Auto 72.9 % (45-73); Platelet Count 308 X10*3/uL (160-400); Red Cell Distribution Width 12.7 % (11.0-16.0); White Blood Count 12.5 X10*3/uL (4.8-10.8)
[2023-09-07 15:20] LABS: Alanine Aminotransferase 28 U/L (0-40); Albumin Level 4.6 g/dL (3.5-5.0); Alkaline Phosphatase 71 U/L (39-117); Anion Gap 13 (12-20); Aspartate Amino Transferase 17 U/L (5-37); Bilirubin Total 1.1 mg/dL (0.0-1.0); Blood Urea Nitrogen 14 mg/dL (9-16); Calcium 10.1 mg/dL (8.4-10.2); Carbon Dioxide 25 mmol/L (22-29); Chloride 105 mmol/L (96-108); Creatinine Clr Calc Pharmacy 138.7; Estimated Glomerular Filt Rate > 60; Glucose Random 84 mg/dL (60-115); Potassium 3.8 mmol/L (3.3-5.1); Sodium 139 mmol/L (135-145); Total Protein 8.4 g/dL (6.5-8.0)
[2023-09-07] MEDS: iohexoL 350 MG/ML 100 ML INFUS..BTL IV (15:33)
[2023-09-07] MEDS: Sulfamethox/Trimeth 800/160 TABLET 1 TAB PO (16:45)
[2023-09-07 16:46] VITALS: BP 115/74; PULSE 80; RESP 18; O2SAT 98
== END 2023-09-07 17:23 | disposition home or self-care (01) ==
PROVIDERS: Student in an Organized Health Care Education/Training Program; Emergency Provider Emergency Medicine
DX: L73.2 Hidradenitis suppurativa (principal); Z11.52 Encounter for screening for COVID-19
CPT/HCPCS: 36415; 72193; 80053; 85025; 87502; 87635; 87651; 99284; Q9967